=== PATIENT | female | born 1985 | race Hispanic/Latino ===

== ENCOUNTER 2020-06-15 17:39 | Inpatient (IN) | payer OTHER ==
[~2020-06-15] VITALS: Ht 167.6 cm; Wt 81.2 kg
[2020-06-15] MEDS ORDERED: OXYTOCIN-LR 20 UNITS/1000 ML 1,000 ML IV SCH (18:15)
[2020-06-15] MEDS ORDERED: PROMETHAZINE HCL 25 MG/ML 1ML AMPULE IM PRN (18:15)
[2020-06-15] MEDS ORDERED: LACTATED RINGERS 500 ML 500 ML IV PRN (18:15)
[2020-06-15] MEDS ORDERED: MEPERIDINE-PF 50 MG/ML SYG IVP PRN (18:15)
[2020-06-15] MEDS ORDERED: LIDOCAINE HCL 1% 20 ML VIAL INJ PRN (18:15)
[2020-06-15] MEDS ORDERED: EPHEDRINE SULFATE 50 MG/ML AMPULE IVP PRN (18:15)
[2020-06-15] MEDS ORDERED: LACTATED RINGERS 1000ML 1,000 ML IV PRN (18:15)
[2020-06-15] MEDS ORDERED: NALOXONE HCL 0.4 MG/1 ML ML IV PRN (18:15)
[2020-06-15] MEDS ORDERED: ROPIVACAINE 0.2% 100ML VIAL 100 ML EP SCH (18:15)
[2020-06-15 18:31] LABS: HEMATOCRIT 35.5 % (36-48); MEAN CORPUSCULAR HEMOGLOBIN 31.7 pg (27.0-33.0); MEAN CORPUSCULAR HGB CONC 33.2 g/dL (32.0-36.0); MEAN CORPUSCULAR VOLUME 95.4 fL (79-99); RED BLOOD CELL COUNT(AUTO) 3.72 MIL/uL (4.00-5.50); RED CELL DISTRIBUTION WIDTH 13.7 % (11.0-15.5); WHITE BLOOD COUNT (AUTO) 10.7 K/uL (4.8-10.8)
[2020-06-16] VITALS (7 sets, daily range): BP systolic 102–114; BP diastolic 56–74
[2020-06-16] MEDS ORDERED: OXYTOCIN-LR 20 UNITS/1000 ML 1,000 ML IV SCH ×2 (00:30→06:00)
[2020-06-16] MEDS ORDERED: DIPH,PERTUSS(ACELL),TET VAC/PF 0.5 ML VIAL IM PRN (00:30)
[2020-06-16] MEDS ORDERED: ACETAMINOPHEN-CODEINE 300/30MG TAB PO PRN (00:30)
[2020-06-16] MEDS ORDERED: MEASLES/MUMPS/RUBELLA VACCINE, LIVE 0.5 ML/VIAL SQ PRN (00:30)
[2020-06-16] MEDS ORDERED: WITCH HAZEL 1 PAD TP PRN (00:30)
[2020-06-16] MEDS ORDERED: ACETAMINOPHEN 325 MG TAB PO PRN (00:30)
[2020-06-16] MEDS ORDERED: LANOLIN 30GM OINTMENT TP PRN (00:30)
[2020-06-16] MEDS ORDERED: BENZOCAINE/LANOLIN/ALOE VERA 60 ML AEROSOL TP PRN (00:30)
[2020-06-16] MEDS: IBUPROFEN 600 MG TABLET PO PRN ×2 (06:39→19:40)
[2020-06-16] MEDS ORDERED: PREN1TAB80 PO (20:18)
[2020-06-16] MEDS: DOCUSATE SODIUM 100 MG CAP PO SCH (20:31)
[2020-06-17 03:00] VITALS: BP 107/65
[2020-06-17 07:18] LABS: RAPID PLASMA REAGIN NONREACTIVE (NONREACTIVE)
[2020-06-17 07:35] VITALS: BP 107/59
[2020-06-17] MEDS: DOCUSATE SODIUM 100 MG CAP PO SCH (09:09)
[2020-06-17] MEDS: IBUPROFEN 600 MG TABLET PO PRN (09:10)
[2020-06-17 10:34] LABS: HEMATOCRIT 31.3 % (36-48); MEAN CORPUSCULAR HEMOGLOBIN 31.6 pg (27.0-33.0); MEAN CORPUSCULAR HGB CONC 32.6 g/dL (32.0-36.0); MEAN CORPUSCULAR VOLUME 96.9 fL (79-99); RED BLOOD CELL COUNT(AUTO) 3.23 MIL/uL (4.00-5.50); RED CELL DISTRIBUTION WIDTH 14.2 % (11.0-15.5)
[2020-06-17 11:25] VITALS: BP 119/67
[2020-06-18 03:09] LABS: HEPATITIS Bs ANTIGEN SCREEN P Negative (Negative)
== END 2020-06-17 14:40 | disposition home or self-care (01) | DRG 807 ==
LOC: EDH 17:39 → LDH 17:40 → OBSVTOIN 17:40 → WSH 06-16 07:45
PROVIDERS: ADMIT Obstetrics & Gynecology; ATTEND Obstetrics & Gynecology
PROC: 10E0XZZ Delivery of Products of Conception, External Approach (ICD-10-PCS; principal; 2020-06-16)
PROC: 0KQM0ZZ Repair Perineum Muscle, Open Approach (ICD-10-PCS; 2020-06-16)
PROC: 3E0234Z Introduction of Serum, Toxoid and Vaccine into Muscle, Percutaneous Approach (ICD-10-PCS; 2020-06-16)
PROC: 3E033VJ Introduction of Other Hormone into Peripheral Vein, Percutaneous Approach (ICD-10-PCS; 2020-06-16)
DX: O70.1 Second degree perineal laceration during delivery (principal); Z37.0 Single live birth; Z3A.40 40 weeks gestation of pregnancy; Z23 Encounter for immunization
CPT/HCPCS: 36415; 85027; 86592; 86701; 86850; 86900; 86901; 87340; 87390; 90715; A4351; G0378; J2175; J2550; J2590; J7120